=== PATIENT | female | born 1945 | race Caucasian/White ===

== ENCOUNTER → 2017-09-16 | Day surgery (SDC) | payer MEDICARE, BC ==
[2017-09-11 10:56] LABS: BASOPHILS % 0.2 % (0.0-1.0); EOSINOPHILS # (AUTO) 0.2 (0.0-0.4); HEMATOCRIT 44.4 % (34.2-44.1); HEMOGLOBIN 14.7 g/dL (12.0-16.0); MEAN CORPUSCULAR HEMOGLOBIN 30.2 pg (28-32); MEAN CORPUSCULAR HGB CONC 33.1 g/dL (31-35); MEAN CORPUSCULAR VOLUME 91.4 fL (81-99); MONOCYTES # (AUTO) 0.9 (0.2-0.8); MONOCYTES % 11.2 % (4.4-11.3); NEUTROPHILS # (AUTO) 4.9 (2.1-6.9); NEUTROPHILS % 61.1 % (38.7-80.0); PLATELET COUNT 239 x10e3/uL (140-360); RED BLOOD COUNT 4.86 x10e6/uL (3.6-5.1); RED CELL DISTRIBUTION WIDTH 13.3 % (11.7-14.4)
[~2017-09-16] MED LIST: ALLEGRA ALLERGY60 MG PO; ASPIRIN81 MG PO; BUSPIRONE HCL5 MG PO; CALTRATE 600 W1 EACH PO; CENTRUM SILVER1 EAC3 PO; ELIQUIS PO; FAMOTIDINE40 MG PO; FENTANYL CITRATE/PF 100MCG/2 ML INJ ONE; FIBER THERAPY500 MG; FISH OIL 1,2001 EAC1 PO; LEVAQUIN500 MG PO; MIRALAX; NASACORT; NEILMED SINUS1 EACH; NORCO 7.5-3251 EACH PO; PANTOPRAZOLE SO40 MG PO; PROMETHAZINE HC25 M1 PO; PROPOFOL IV EMULSION 10 MG/ML 50 ML VIAL ONE; STOOL SOFTENER1 EAC2 PO; SUDAFED 12 HOU120 MG PO; THIORIDAZINE HC25 MG PO; TRIAMCINOLONE16.5 GM; ULTRAM50 MG PO; VIIBRYD20 MG PO
== END | disposition home or self-care (01) ==
LOC: OR 08:22
PROVIDERS: ATTEND Internal Medicine Gastroenterology
DX: K21.9 Gastro-esophageal reflux disease without esophagitis (principal); K31.7 Polyp of stomach and duodenum; K29.70 Gastritis, unspecified, without bleeding; K25.9 Gastric ulcer, unspecified as acute or chronic, without hemorrhage or perforation; E66.01 Morbid (severe) obesity due to excess calories; F32.9 Major depressive disorder, single episode, unspecified; F41.9 Anxiety disorder, unspecified; Z01.810 Encounter for preprocedural cardiovascular examination; Z01.812 Encounter for preprocedural laboratory examination; Z79.02 Long term (current) use of antithrombotics/antiplatelets; Z79.01 Long term (current) use of anticoagulants; Z68.41 Body mass index [BMI] 40.0-44.9, adult
CPT/HCPCS: 36415; 43239; 85025; 88304; 88305; 88312; 93005

== ENCOUNTER → 2019-08-23 | Day surgery (SDC) | payer MEDICARE, BC ==
[2019-08-22 10:27] LABS: BASOPHILS % 0.2 % (0.0-1.0); EOSINOPHILS # (AUTO) 0.2 (0.0-0.4); EOSINOPHILS % 1.8 % (0.0-6.0); HEMATOCRIT 42.7 % (34.2-44.1); HEMOGLOBIN 13.8 g/dL (12.0-16.0); LYMPHOCYTES # (AUTO) 1.8 (1.0-3.2); MEAN CORPUSCULAR HGB CONC 32.3 g/dL (31-35); MONOCYTES # (AUTO) 0.7 (0.2-0.8); MONOCYTES % 8.6 % (4.4-11.3); NEUTROPHILS # (AUTO) 5.5 (2.1-6.9); NEUTROPHILS % 66.7 % (38.7-80.0); PLATELET COUNT 224 x10e3/uL (140-360); RED BLOOD COUNT 4.45 x10e6/uL (3.6-5.1); RED CELL DISTRIBUTION WIDTH 13.3 % (11.7-14.4)
--- NOTE | 2019-08-22 11:13 | Diagnostic Imaging Report ---
Chest, PA and lateral. History: Preoperative chest x-ray. Bilateral CTS. Comparison: 10/25/2016. Discussion: The cardiomediastinal silhouette and pulmonary vasculature are within normal limits. The lungs are clear without evidence of consolidation or effusion. There are no acute osseous abnormalities. IMPRESSION: No radiographic evidence of acute cardiopulmonary abnormality. Signed by: Jose Marcano MD on 08/22/2019 11:10 AM
[~2019-08-23] MED LIST changes: +ASPIR 8181 MG PO; +BYSTOLIC10 MG PO; +CITALOPRAM HBR20 MG PO; +CLINDAMYCIN 600MG / 50ML 50 ML IV ONE; +DEXAMETHASONE SOD PHOS INJ 4 MG/ML VIAL ONE; -FENTANYL CITRATE/PF 100MCG/2 ML INJ ONE; +FLONASE ALLERG9.9 ML NS; +KETOROLAC TROMETHAMINE 30 MG/ML VIAL ONE; +LIDOCAINE HCL 2% LOCAL INJ 5 ML SDV VIAL INJ ONE; +METOCLOPRAMIDE HCL 10 MG/2ML VIAL ONE; +MIRALAX PO; +MORPHINE SULFATE 2 MG/ML SYR 1ML ONE; +ONDANSETRON HCL INJ 2MG/ML 2ML 2 MG/ML VIAL ONE; +OSTEO BI-FLEX1 EAC2 PEG; +PROMETHAZINE HCL (IM) 25 MG/ML VIAL ONE; +PROPOFOL IV EMULSION 10 MG/ML 20 ML VIAL ONE; -PROPOFOL IV EMULSION 10 MG/ML 50 ML VIAL ONE; +SEVOFLURANE INHAL SOLN 250 ML PEN BTL ONE; +SUCRALFATE1 GM PO; +TUMERIC PO; +XYZAL5 MG PO
[2019-08-23 09:15] VITALS: BP 151/83
--- NOTE | 2019-08-23 12:37 | Operative Report ---
DATE OF PROCEDURE: 08/23/2019 SURGEON: Reji De Santiago MD PETROLEUM ENGINEER: Danyel Graham, certified PA. PREOPERATIVE DIAGNOSIS: Bilateral carpal tunnel syndrome. POSTOPERATIVE DIAGNOSIS: Bilateral carpal tunnel syndrome. PROCEDURE: Bilateral endoscopic carpal tunnel release. INDICATIONS: The patient is a 74-year-old lady, who has clinic signs and symptoms consistent with bilateral carpal tunnel syndrome. She has failed conservative management and would like to proceed with definitive intervention. The risks and benefits of an endoscopic versus open carpal tunnel release have been explained. She states she understands and wishes to proceed. PROCEDURE IN DETAIL: The patient was brought to the operating room and placed under general anesthetic. She received prophylactic antibiotics in the holding area. Both upper extremities were prepped and draped in a sterile manner. A preoperative time-out was performed. Our initial attention was directed towards the right arm. The extremity was exsanguinated and a proximal tourniquet was briefly inflated to 250 mmHg. An incision was made over the flexion crease of the right wrist. The palmaris longus was retracted to the radial side of the wound. The flexor retinaculum was elevated and incised with a pair of tenotomy scissors. An elevator was used to tease the tenosynovium off the undersurface of the transverse carpal ligament. Dilators were placed and the hook of the hamate was palpated. The Micro[employer] endoscope was placed into the carpal tunnel. The undersurface of the transverse carpal ligament was cleanly visualized without evidence of soft tissue interposition. The knife was deployed and the ligament was cut from distal to proximal. The ligament was quite thick at the distal aspect. A full-thickness cut was noted. The proximal retinaculum was incised under direct visualization. The wound was then closed with two interrupted nylon stitches. A sterile bandage was applied and the tourniquet was deflated. The same procedure was then performed on the left side. The patient was extubated and transported to the recovery room in stable condition. There was no blood loss and all needle and sponge counts were correct. Reji De Santiago MD DR/SOREN /[id number]
--- OUTSIDE RECORDS SUMMARY | 2019-09-02 10:18 | XMS REPORT ---
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 Allergies, Adverse Reactions, Alerts This patient has no known allergies or adverse reactions. Medications This patient has no known medications. Results Test Description Test Time Test Comments Text Results Atomic Results Result Comments CHEST 2 VIEWS 2019-08-22 11:08:00 [place] [address] Patient Name: PAM GARCIA MR #: [id number] : 1945 Age/Sex: 74/F Req #: [id number] Adm Physician: Ordered by: ELIJAH JOSEPH MD Report #: [id number] Location: OR Room/Bed: Procedure: [id number] DX/CHEST 2 VIEWS Exam Date: 08/22/19 Exam Time: 1050 REPORT STATUS: Signed Chest, PA and lateral. History: Preoperative chest x-ray. Bilateral CTS. Comparison: 10/25/2016. Discussion: The cardiomediastinal silhouette and pulmonary vasculature are within normal limits. The lungs are clear without evidence of consolidation or effusion. There are no acute osseous abnormalities. IMPRESSION: No radiographic evidence of acute cardiopulmonary abnormality. Signed by: Jose Nobles MD on 08/22/2019 11:10 AM Dictated By: JOSE NOBLES MD 1110 Transcribed By: ROMARIO on 08/22/19 1110 COPY TO: ELIJAH JOSEPH MD SCR MAMM BILATERAL GRIFFIN CAD DIGITAL 2018-08-17 08:38:41 - SCR MAMM BILATERAL GRIFFIN CAD DIGITALBILATERAL DIGITAL SCREENING MAMMOGRAM 3D/2D WITH CAD: 08/03/2018CLINICAL: Asymptomatic. Digital breast tomosynthesis was performed in addition to routine CC and MLO views. Current mammographic images were evaluated by either a [employer] M-Vu or a [employer] CAD (computer aided detection system). Comparison is made to exams dated 07/08/2016 mammogram, mammogram, and 01/24/2013 mammogram - [facility]. There are scattered fibroglandular tissues in both breasts. No suspicious mass, architectural distortion, malignant type calcification, or lymph node abnormality detected. Breast architecture is stable compared to prior exams.IMPRESSION: NEGATIVEThere is no mammographic evidence of malignancy. Resume annual screening mammography in one year. Hardik Tovar M.D. ss/penrad:08/17/2018 08:38:41 Tire Retreader: Sona SALAS, [facility]-FWletter sent: BIRADS 1-2 Normal Mammogram BI-RADS: 1 Negative BASIC METABOLIC PANEL 2018-04-14 09:08:00 SODIUM (BEAKER) (test eadz=113) 142 meq/L 136-145 POTASSIUM (BEAKER) (test tsvf=444) 4.0 meq/L 3.5-5.1 CHLORIDE (BEAKER) (test ntcb=209) 106 meq/L 98-107 CO2 (BEAKER) (test wujn=007) 30 meq/L 22-29 BLOOD UREA NITROGEN (BEAKER) (test cdgg=140) 15 mg/dL 7-21 CREATININE (BEAKER) (test hqwr=197) 0.83 mg/dL 0.57-1.25 GLUCOSE RANDOM (BEAKER) (test jeof=517) 98 mg/dL 70-105 CALCIUM (BEAKER) (test qybb=059) 9.8 mg/dL 8.4-10.2 EGFR (BEAKER) (test xydm=2681) 68 mL/min/1.73 sq m ESTIMATED GFR IS NOT ACCURATE CREATININE CLEARANCE IN PREDICTING GLOMERULAR FILTRATION RATE. ESTIMATED GFR IS NOT APPLICABLE FOR DIALYSIS PATIENTS. CBC W/PLT COUNT & AUTO [id number] 08:56:00* Test Item Value Reference Range Comments WHITE BLOOD CELL COUNT (BEAKER) (test qgnt=200) 7.4 K/ L 3.5-10.5 RED BLOOD CELL COUNT (BEAKER) (test lxcr=924) 5.03 M/ L 3.93-5.22 HEMOGLOBIN (BEAKER) (test ahsm=747) 15.1 GM/DL 11.2-15.7 HEMATOCRIT (BEAKER) (test otnt=438) 47.4 % 34.1-44.9 MEAN CORPUSCULAR VOLUME (BEAKER) (test vabw=003) 94.2 fL 79.4-94.8 MEAN CORPUSCULAR HEMOGLOBIN (BEAKER) (test eybg=365) 30.0 pg 25.6-32.2 MEAN CORPUSCULAR HEMOGLOBIN CONC (BEAKER) (test fdbo=655) 31.9 GM/DL 32.2-35.5 RED CELL DISTRIBUTION WIDTH (BEAKER) (test ftex=185) 12.4 % 11.7-14.4 PLATELET COUNT (BEAKER) (test aqyg=347) 273 K/CU MM 150-450 MEAN PLATELET VOLUME (BEAKER) (test aztb=943) 9.4 fL 9.4-12.3 NUCLEATED RED BLOOD CELLS (BEAKER) (test wpmf=866) 0 /100 WBC 0-0 NEUTROPHILS RELATIVE PERCENT (BEAKER) (test yioq=623) 59 % LYMPHOCYTES RELATIVE PERCENT (BEAKER) (test igcf=499) 28 % MONOCYTES RELATIVE PERCENT (BEAKER) (test hwhj=745) 10 % EOSINOPHILS RELATIVE PERCENT (BEAKER) (test nkgy=001) 3 % BASOPHILS RELATIVE PERCENT (BEAKER) (test jzwb=199) 0 % NEUTROPHILS ABSOLUTE COUNT (BEAKER) (test dkzb=941) 4.40 K/ L 1.56-6.13 LYMPHOCYTES ABSOLUTE COUNT (BEAKER) (test lbgx=241) 2.05 K/ L 1.18-3.74 MONOCYTES ABSOLUTE COUNT (BEAKER) (test hgpe=741) 0.71 K/ L 0.24-0.36 EOSINOPHILS ABSOLUTE COUNT (BEAKER) (test klmq=327) 0.19 K/ L 0.04-0.36 BASOPHILS ABSOLUTE COUNT (BEAKER) (test qayd=731) 0.02 K/ L 0.01-0.08 IMMATURE GRANULOCYTES-RELATIVE PERCENT (BEAKER) (test punk=7003) 0 % 0-1 CBC (HEMOGRAM ONLY)2018-04-06 12:52:00* Test Item Value Reference Range Comments WHITE BLOOD CELL COUNT (BEAKER) (test vxiz=306) 7.7 K/ L 3.5-10.5 RED BLOOD CELL COUNT (BEAKER) (test fkau=081) 5.02 M/ L 3.93-5.22 HEMOGLOBIN (BEAKER) (test bbli=580) 15.1 GM/DL 11.2-15.7 HEMATOCRIT (BEAKER) (test wspr=354) 46.5 % 34.1-44.9 MEAN CORPUSCULAR VOLUME (BEAKER) (test gpbp=724) 92.6 fL 79.4-94.8 MEAN CORPUSCULAR HEMOGLOBIN (BEAKER) (test pkwp=945) 30.1 pg 25.6-32.2 MEAN CORPUSCULAR HEMOGLOBIN CONC (BEAKER) (test gkwt=292) 32.5 GM/DL 32.2-35.5 RED CELL DISTRIBUTION WIDTH (BEAKER) (test ozmg=455) 12.6 % 11.7-14.4 PLATELET COUNT (BEAKER) (test xvjb=049) 268 K/CU MM 150-450 MEAN PLATELET VOLUME (BEAKER) (test bfpx=708) 9.3 fL 9.4-12.3 NUCLEATED RED BLOOD CELLS (BEAKER) (test rrpc=988) 0 /100 WBC 0-0 BASIC METABOLIC [id number] 12:31:00* Test Item Value Reference Range Comments SODIUM (BEAKER) (test ogyv=162) 139 meq/L 136-145 POTASSIUM (BEAKER) (test kesu=547) 4.6 meq/L 3.5-5.1 CHLORIDE (BEAKER) (test cthp=219) 105 meq/L 98-107 CO2 (BEAKER) (test cvtp=028) 25 meq/L 22-29 BLOOD UREA NITROGEN (BEAKER) (test tqia=847) 17 mg/dL 7-21 CREATININE (BEAKER) (test junc=082) 0.80 mg/dL 0.57-1.25 GLUCOSE RANDOM (BEAKER) (test kpyd=192) 95 mg/dL 70-105 CALCIUM (BEAKER) (test eysq=818) 10.0 mg/dL 8.4-10.2 EGFR (BEAKER) (test kwse=1763) 71 mL/min/1.73 sq m ESTIMATED GFR IS NOT ACCURATE CREATININE CLEARANCE IN PREDICTING GLOMERULAR FILTRATION RATE. ESTIMATED GFR IS NOT APPLICABLE FOR DIALYSIS PATIENTS. BASIC METABOLIC [id number] 06:26:00* Test Item Value Reference Range Comments SODIUM (BEAKER) (test mpov=278) 139 meq/L 136-145 POTASSIUM (BEAKER) (test scdt=206) 3.8 meq/L 3.5-5.1 CHLORIDE (BEAKER) (test ksdq=566) 107 meq/L 98-107 CO2 (BEAKER) (test cfrl=790) 21 meq/L 22-29 BLOOD UREA NITROGEN (BEAKER) (test icdj=431) 15 mg/dL 7-21 CREATININE (BEAKER) (test iply=156) 0.72 mg/dL 0.57-1.25 GLUCOSE RANDOM (BEAKER) (test sbhk=579) 111 mg/dL 70-105 CALCIUM (BEAKER) (test slbs=370) 9.7 mg/dL 8.4-10.2 EGFR (BEAKER) (test iwjr=5837) mL/min/1.73 sq m INSUFFICIENT CLINICAL DATA TO CALCULATE ESTIMATED GFR. BASIC METABOLIC [id number] 05:58:00* Test Item Value Reference Range Comments SODIUM (BEAKER) (test kctn=969) 141 meq/L 136-145 POTASSIUM (BEAKER) (test jpkt=479) 3.6 meq/L 3.5-5.1 CHLORIDE (BEAKER) (test spia=428) 107 meq/L 98-107 CO2 (BEAKER) (test znvr=144) 23 meq/L 22-29 BLOOD UREA NITROGEN (BEAKER) (test jlvw=953) 9 mg/dL 7-21 CREATININE (BEAKER) (test fjob=997) 0.66 mg/dL 0.57-1.25 GLUCOSE RANDOM (BEAKER) (test dxmm=970) 99 mg/dL 70-105 CALCIUM (BEAKER) (test tghh=033) 9.3 mg/dL 8.4-10.2 EGFR (BEAKER) (test pqcu=2656) mL/min/1.73 sq m INSUFFICIENT CLINICAL DATA TO CALCULATE ESTIMATED GFR. CBC (HEMOGRAM ONLY)2016-10-31 05:43:00* Test Item Value Reference Range Comments WHITE BLOOD CELL COUNT (BEAKER) (test jvkt=277) 7.5 K/ L 4.0-10.0 RED BLOOD CELL COUNT (BEAKER) (test ppbs=310) 4.08 M/ L 4.00-5.00 HEMOGLOBIN (BEAKER) (test soou=333) 12.8 GM/DL 12.0-15.0 HEMATOCRIT (BEAKER) (test olki=596) 37.2 % 36.0-45.0 MEAN CORPUSCULAR VOLUME (BEAKER) (test gnqy=067) 91.2 fL 82.0-99.0 MEAN CORPUSCULAR HEMOGLOBIN (BEAKER) (test ikdh=324) 31.3 pg 27.0-33.0 MEAN CORPUSCULAR HEMOGLOBIN CONC (BEAKER) (test doua=783) 34.3 GM/DL 32.0-36.0 RED CELL DISTRIBUTION WIDTH (BEAKER) (test oyyt=721) 13.5 % 10.3-14.2 PLATELET COUNT (BEAKER) (test bycr=774) 207 K/CU MM 150-430 MEAN PLATELET VOLUME (BEAKER) (test srak=442) 6.5 fL 6.5-10.5 NUCLEATED RED BLOOD CELLS (BEAKER) (test zuav=903) 0 /100 WBC 0-0 0.00BLOOD [id number] 05:00:00* Test Item Value Reference Range Comments CULTURE (BEAKER) (test ultw=3749) No growth in 5 days BLOOD [id number] 05:00:00* Test Item Value Reference Range Comments CULTURE (BEAKER) (test elyp=7140) No growth in 5 days [id number] 13:50:00* Test Item Value Reference Range Comments PARTIAL THROMBOPLASTIN TIME (BEAKER) (test yneg=046) 102.0 seconds 22.5-36.0 BASIC METABOLIC [id number] 09:12:00* Test Item Value Reference Range Comments SODIUM (BEAKER) (test fngy=278) 140 meq/L 136-145 POTASSIUM (BEAKER) (test mxwz=692) 4.1 meq/L 3.5-5.1 CHLORIDE (BEAKER) (test vlik=079) 108 meq/L 98-107 CO2 (BEAKER) (test vqnd=725) 24 meq/L 22-29 BLOOD UREA NITROGEN (BEAKER) (test dvoj=361) 9 mg/dL 7-21 CREATININE (BEAKER) (test kour=962) 0.64 mg/dL 0.57-1.25 GLUCOSE RANDOM (BEAKER) (test ltpk=389) 105 mg/dL 70-105 CALCIUM (BEAKER) (test anll=975) 9.0 mg/dL 8.4-10.2 EGFR (BEAKER) (test gyva=2547) mL/min/1.73 sq m INSUFFICIENT CLINICAL DATA TO CALCULATE ESTIMATED GFR. [id number] 05:56:00* Test Item Value Reference Range Comments PARTIAL THROMBOPLASTIN TIME (BEAKER) (test kwqb=141) 54.2 seconds 22.5-36.0 [id number] 20:17:00* Test Item Value Reference Range Comments PARTIAL THROMBOPLASTIN TIME (BEAKER) (test apyj=876) 71.2 seconds 22.5-36.0 [id number] 14:09:00* Test Item Value Reference Range Comments PARTIAL THROMBOPLASTIN TIME (BEAKER) (test xxdn=795) 74.0 seconds 22.5-36.0 BASIC METABOLIC [id number] 03:47:00* Test Item Value Reference Range Comments SODIUM (BEAKER) (test fhmm=970) 140 meq/L 136-145 POTASSIUM (BEAKER) (test efcy=038) 3.6 meq/L 3.5-5.1 CHLORIDE (BEAKER) (test wsym=618) 111 meq/L 98-107 CO2 (BEAKER) (test waku=577) 21 meq/L 22-29 BLOOD UREA NITROGEN (BEAKER) (test hhdb=314) 8 mg/dL 7-21 CREATININE (BEAKER) (test bmvi=423) 0.59 mg/dL 0.57-1.25 GLUCOSE RANDOM (BEAKER) (test npoj=769) 115 mg/dL 70-105 CALCIUM (BEAKER) (test fvqd=665) 8.0 mg/dL 8.4-10.2 EGFR (BEAKER) (test giki=6009) mL/min/1.73 sq m INSUFFICIENT CLINICAL DATA TO CALCULATE ESTIMATED GFR. [id number] 03:43:00* Test Item Value Reference Range Comments MAGNESIUM (BEAKER) (test zcvj=387) 1.7 mg/dL 1.6-2.6 CBC (HEMOGRAM ONLY)2016-10-29 03:40:00* Test Item Value Reference Range Comments WHITE BLOOD CELL COUNT (BEAKER) (test ohnt=369) 7.9 K/ L 4.0-10.0 RED BLOOD CELL COUNT (BEAKER) (test tmvw=009) 4.01 M/ L 4.00-5.00 HEMOGLOBIN (BEAKER) (test mvkz=974) 12.4 GM/DL 12.0-15.0 HEMATOCRIT (BEAKER) (test etpv=390) 37.7 % 36.0-45.0 MEAN CORPUSCULAR VOLUME (BEAKER) (test ouue=546) 94.0 fL 82.0-99.0 MEAN CORPUSCULAR HEMOGLOBIN (BEAKER) (test kvyj=198) 30.9 pg 27.0-33.0 MEAN CORPUSCULAR HEMOGLOBIN CONC (BEAKER) (test hwbm=143) 32.9 GM/DL 32.0-36.0 RED CELL DISTRIBUTION WIDTH (BEAKER) (test asxf=494) 12.0 % 10.3-14.2 PLATELET COUNT (BEAKER) (test lwjt=157) 173 K/CU MM 150-430 MEAN PLATELET VOLUME (BEAKER) (test kirm=109) 6.5 fL 6.5-10.5 NUCLEATED RED BLOOD CELLS (BEAKER) (test zjhu=105) 0 /100 WBC 0-0 [id number] 03:39:00* Test Item Value Reference Range Comments PARTIAL THROMBOPLASTIN TIME (BEAKER) (test pqsl=718) 95.2 seconds 22.5-36.0 [id number] 20:32:00* Test Item Value Reference Range Comments PARTIAL THROMBOPLASTIN TIME (BEAKER) (test ubqk=801) 50.1 seconds 22.5-36.0
== END | disposition home or self-care (01) ==
LOC: OR 05:35
PROVIDERS: ATTEND Specialist
DX: G56.03 Carpal tunnel syndrome, bilateral upper limbs (principal); Z88.1 Allergy status to other antibiotic agents; Z88.5 Allergy status to narcotic agent; Z88.0 Allergy status to penicillin; M19.90 Unspecified osteoarthritis, unspecified site; I10 Essential (primary) hypertension; Z86.711 Personal history of pulmonary embolism
CPT/HCPCS: 29848; 36415; 71046; 85025; 93005; J1100; J1885; J2001; J2270; J2405; J2704; J2765; J2550

== ENCOUNTER 2022-12-27 14:20 | Emergency (ER) | payer MEDICARE, BC ==
[~2022-12-27] VITALS: Ht 157.5 cm; Wt 113.4 kg
[~2022-12-27 14:20] MED LIST changes: -CLINDAMYCIN 600MG / 50ML 50 ML IV ONE; -DEXAMETHASONE SOD PHOS INJ 4 MG/ML VIAL ONE; -KETOROLAC TROMETHAMINE 30 MG/ML VIAL ONE; -LIDOCAINE HCL 2% LOCAL INJ 5 ML SDV VIAL INJ ONE; -METOCLOPRAMIDE HCL 10 MG/2ML VIAL ONE; -MORPHINE SULFATE 2 MG/ML SYR 1ML ONE; -ONDANSETRON HCL INJ 2MG/ML 2ML 2 MG/ML VIAL ONE; -PROMETHAZINE HCL (IM) 25 MG/ML VIAL ONE; -PROPOFOL IV EMULSION 10 MG/ML 20 ML VIAL ONE; -SEVOFLURANE INHAL SOLN 250 ML PEN BTL ONE
[2022-12-27] MEDS ORDERED: LIDOCAINE HCL 1% LOCAL INJ 20 ML VIAL ONE (16:37)
== END 2022-12-27 17:10 | disposition home or self-care (01) ==
LOC: ER 14:41
DX: S81.811A Laceration without foreign body, right lower leg, initial encounter (principal); W22.09XA Striking against other stationary object, initial encounter; Y92.89 Other specified places as the place of occurrence of the external cause; K21.9 Gastro-esophageal reflux disease without esophagitis; F32.A Depression, unspecified; Z87.19 Personal history of other diseases of the digestive system
CPT/HCPCS: 12002; 99283; J2001